=== PATIENT | female | born 1970 | race Caucasian/White ===

== ENCOUNTER 2017-09-03 14:59 | Emergency (ER) | payer BC ==
[2017-09-03 16:42] VITALS: BP 132/71
--- NOTE | 2017-09-03 17:23 | UC ---
Throat Pain/Nasal Bossman HPI - HPI Summary HPI Summary: 6 days of worsening sinus pain, congestion nasal drainage, body aches and chills - History of Current Complaint Chief Complaint: UCRespiratory Stated Complaint: SINUS COMP Time Seen by Provider: 09/03/17 16:44 Hx Obtained From: Patient Hx Last Menstrual Period: 09/02/17 ?: No Onset/Duration: Sudden Onset, Lasting Days - 6, Worse Since - daily Pain Intensity: 8 Pain Scale Used: 0-10 Numeric Associated Signs & Symptoms: Positive: Sinus Discomfort, Nasal Discharge Related History: Smoking - Allergies/Home Medications Allergies/Adverse Reactions: Allergies Allergy/AdvReac Type Severity Reaction Status Date / Time atenolol Allergy Difficulty Verified 09/03/17 16:33 Breathing Penicillins Allergy Difficulty Verified 09/03/17 16:33 Breathing Home Medications: Home Medications Acetaminophen [Acetaminophen Extra Strength] 1,000 mg PO Q6H 09/03/17 [History Confirmed 09/03/17] Cough Medication 10 ml PO BEDTIME PRN 09/03/17 [History] Ibuprofen TAB* [Advil TAB*] 800 mg PO Q6H PRN 09/03/17 [History Confirmed ] PMH/Surg Hx/FS Hx/Imm Hx Previously Healthy: No Endocrine History: Diabetes, Dyslipidemia Cardiovascular History: Hypertension Psychological History: Depression - Surgical History Surgical History: Yes Surgery Procedure, Year, and Place: T & A - Family History Known Family History: Positive: Hypertension, Diabetes - Social History Occupation: Employed Full-time Lives: With Family Alcohol Use: Occasionally Substance Use Type: None Smoking Status (MU): Heavy Every Day Tobacco Smoker Type: Cigarettes Amount Used/How Often: 1 ppd Length of Time of Smoking/Using Tobacco: 20 yrs Have You Smoked in the Last Year: Yes Review of Systems Constitutional: Chills, Fatigue Skin: Negative Eyes: Negative ENT: Ear Ache, Nasal Discharge, Sinus Congestion, Sinus Pain/Tenderness Respiratory: Cough Cardiovascular: Negative Gastrointestinal: Negative Genitourinary: Negative Motor: Negative Neurovascular: Negative Musculoskeletal: Negative Neurological: Negative Psychological: Negative Is Patient Immunocompromised?: No All Other Systems Reviewed And Are Negative: Yes Physical Exam Triage Information Reviewed: Yes Appearance: Ill-Appearing, Pain Distress, Obese Vital Signs: Initial Vital Signs Temp 98.5 F 09/03/17 16:36 Pulse 86 07/26/18 16:36 Resp 18 09/03/17 16:36 BP 132/71 09/03/17 16:36 Pulse Ox 99 09/03/17 16:36 Vital Signs Reviewed: Yes Eye Exam: Normal Eyes: Positive: Conjunctiva Clear ENT Exam: Normal ENT: Positive: Normal ENT inspection, Pharynx normal, Nasal congestion, TMs normal, Sinus tenderness, Uvula midline. Negative: Trismus, Muffled voice, Hoarse voice, Dental tenderness Dental Exam: Normal Neck exam: Normal Neck: Positive: Supple, Nontender Respiratory Exam: Normal Respiratory: Positive: Chest non-tender, Lungs clear, Normal breath sounds, No respiratory distress, No accessory muscle use Cardiovascular Exam: Normal Cardiovascular: Positive: RRR, No Murmur, Pulses Normal, Brisk Capillary Refill Musculoskeletal Exam: Normal Musculoskeletal: Positive: Strength Intact, ROM Intact, No Edema Neurological Exam: Normal Neurological: Positive: Alert, Muscle Tone Normal Psychological Exam: Normal Skin Exam: Normal Throat Pain/Nasal Course/Dx - Course Assessment/Plan: albuterol, flonase with no relief may start antibiodics, nicotine cesasation information, increase fluids follow with pcp - Differential Dx/Diagnosis Provider Diagnoses: Nicotine dependant, acute sinusitis Discharge - Sign-Out/Discharge Documenting (check all that apply): Patient Departure - Discharge Plan Condition: Stable Disposition: HOME Prescriptions: Albuterol HFA INHALER* [Ventolin HFA Inhaler*] 2 puff INH Q4H PRN #1 mdi PRN Reason: cough/sob Azithromycin TAB* [Zithromax TAB (Z-FLEX) 250 mg #6 tabs] 2 tab PO .TODAY, THEN 1 DAILY #1 flex Fluticasone NASAL SPRAY 50MCG* [Flonase NASAL SPRAY 50MCG*] 2 spray BOTH NARES DAILY #1 btl Patient Education Materials: Sinusitis (ED) Forms: *Work Release Referrals: Milagros Bhatia NP [Primary Care Provider] - If Needed - Billing Disposition and Condition Condition: STABLE Disposition: Home
== END 2017-09-03 17:33 | disposition home or self-care (01) ==
LOC: UCCORT 14:59
DX: J01.90 Acute sinusitis, unspecified (principal); Z88.0 Allergy status to penicillin; Z88.8 Allergy status to other drugs, medicaments and biological substances; F17.210 Nicotine dependence, cigarettes, uncomplicated
CPT/HCPCS: 99212; G0463

== ENCOUNTER 2018-11-15 15:37 | Emergency (ER) | payer BC ==
--- OUTSIDE RECORDS SUMMARY | 2018-11-15 17:59 | XMS REPORT | Continuity of Care Document ---
:1970 External Reference #:[id number] Author Name Milagros Bhatia N.[place]ato Address [address] [place] [address] Problems Active Problems Provider Date Essential hypertension Milagros Bhatia, N.P. Onset: 05/09/2016 Moderate recurrent major depression Milagros Bhatia, N.P. Onset: 05/09/2016 Polycystic ovaries Milagros Bhatia, N.P. Onset: 05/09/2016 Overweight Milagros Bhatia, N.P. Onset: 05/09/2016 Mixed hyperlipidemia Milagros Bhatia, N.P. Onset: 05/09/2016 Mood disorder Milagros Bhatia, N.P. Onset: 02/23/2017 Social History Type Date Description Comments Sex Unknown Tobacco Use Start: Unknown Light tobacco smoker (10 or fewer cigarettes/day) Allergies, Adverse Reactions, Alerts Active Allergies Reaction Severity Comments Date PCN Tenormin Medications Active Medications SIG Qnty Indications Ordering Date Provider Work Note No work Sriram, 10/25/2018 10/25/18-10/26/18 Milagros, N.P. for medical reasons Zithromax Z-Colt as directed 1tabs Sriram, 10/13/2018 250mg Tablets Mashelle, N.P. Cyclobenzaprine HCL take one tablet 15tabs Sriram, 06/22/2018 10mg Tablets by mouth three Mashelle, N.P. times a day as needed muscle spasm Prednisone 1 by mouth 3tabs Sriram, 06/22/2018 50mg Tablets every day x 3 Mashelle, N.P. days Januvia Take One Tablet 30tabs Sriram, 06/15/2018 50mg Tablets By Mouth Every Mashelle, N.P. Morning Propranolol HCL ER Take One 30caps Sriram, 06/11/2018 160mg Caps ER Capsule By Mashelle, N.P. 24HR Mouth Every Day Fluoxetine HCL Take One caps Sriram, 08/19/2012 40mg Capsules Capsule By Mashelle, N.P. Mouth Every Day Simvastatin Take One Tablet 90tabs Sriram, 12/22/2011 20mg Tablets By Mouth Every Mashelle, N.P. Day Metformin HCL Take One Tablet 180tabs Sriram, 11/13/2008 500mg Tablets By Mouth Twice Mashelle, N.P. A Day Hydrochlorothiazide Take One Tablet 90tabs Sriram, 05/22/2004 25mg Tablets By Mouth Every Mashelle, N.P. Day History Medications Propranolol HCL ER 1 by mouth 90caps Sriram, Mashelle, 06/11/2018 - 120mg every day N.P. 06/11/2018 Caps ER 24HR Medications Administered in Office Medication SIG Qnty Indications Ordering Provider Date Depo Medrol 40 MG Criselda Miner MD 02/20/2003 Injection Immunizations CPT Code Status Date Vaccine Lot # [id number] Given 11/17/2017 Influenza Vac, Quadrivalent, Split, 0.5mL Dosage, Im Use [id number] Given 11/23/2016 Influenza Vac, Quadrivalent, Split, 0.5mL Dosage, Im Use [id number] Given 12/05/2015 Influenza Vac, Quadrivalent, Split, 0.5mL Dosage, Im Use 37052 Given 11/24/2013 Afluria Or Fluvirin Flu Vac Intramuscular [id number] Given 11/17/2012 Fluzone Trivalent Immunization 77919 Given 10/04/2008 Tdap (Adacel) Ages 7 And Above Only [id number] Given 05/03/1985 DTaP Immunization 7 Yrs & Younger [id number] 65046 Given 12/22/1974 MMR Virus Immunization 23909 Given 05/29/1973 IPV / Poliomyelitis Immunization 50937 Given 05/11/1973 DTaP Immunization 7 Yrs & Younger [id number] 37021 Given 05/16/1970 Small Pox Immunization 21720 Given 02/28/1970 IPV / Poliomyelitis Immunization 46348 Given 02/28/1970 DTaP Immunization 7 Yrs & Younger [id number] 88797 Given 06/27/1969 MMR Virus Immunization 27491 Given 1968 IPV / Poliomyelitis Immunization 24899 Given 1968 DTaP Immunization 7 Yrs & Younger [id number] 04752 Given 1968 IPV / Poliomyelitis Immunization 58006 Given 1968 DTaP Immunization 7 Yrs & Younger [id number] 90843 Given 1968 IPV / Poliomyelitis Immunization 01749 Given 1968 DTaP Immunization 7 Yrs & Younger [id number] Vital Signs Date Vital Result Comment 10/25/2018 9:45am Body Temperature 97.3 F Weight 285.00 lb Heart Rate 60 /min BP Systolic 126 mmHg BP Diastolic 78 mmHg O2 % BldC Oximetry 97 % 10/13/2018 10:55am Body Temperature 97.7 F Weight 294.00 lb Heart Rate 68 /min BP Systolic 134 mmHg BP Diastolic 74 mmHg O2 % BldC Oximetry 97 % Results Test Date Facility Test Result H/L Range Note Hemoglobin A1c 10/13/2018 [facility] Hemoglobin A1c 5.8 % 4.1-5.9 1 Estimated Average Glucose Calc 120 mg/dL 71-140 Basic (BMP) 10/13/2018 [facility] Sodium 147 mmol/L High 135-146 2 Potassium 4.8 mmol/L 3.5-5.2 Chloride# 102 mmol/L 97-110 3 Carbon Dioxide 32 mmol/L 24-34 Glucose 103 mg/dL 70-105 BUN 14 mg/dL 6-26 Creatinine 0.7 mg/dL 0.5-1.4 Calcium 10.2 mg/dL 8.5-10.5 4 Female Egfr 94 >60 5 Male Egfr 107 >60 6 Anion Gap 13 mmol/L 5-15 7 Lipid 10/13/2018 [facility] Cholesterol 185 mg/dL 50-199 Triglycerides 415 mg/dL High 30-200 HDL 33 mg/dL Low 35-85 8 Chol/ HDL Ratio 5.6 ratio 3.7-5.6 Laboratory test finding 10/13/2018 [facility] LDL 99 mg/dL 20-99 9 Comprehensive Met 06/11/2018 [facility] Sodium 140 mmol/L 135-146 10, 11 [facility] Potassium 4.6 mmol/L 3.5-5.2 Chloride# 102 mmol/L 97-110 12 Carbon Dioxide 28 mmol/L 24-34 Calcium (Copy 9377) 9.7 mg/dL 8.5-10.5 13 Glucose 100 mg/dL 70-105 BUN 14 mg/dL 6-26 Creatinine 0.6 mg/dL 0.5-1.4 Total Protein 6.9 g/dL 6.0-8.0 Albumin 4.3 g/dL 3.6-4.9 Globulin 2.6 g/dL 2.0-3.5 A/G Ratio 1.7 Ratio 1.0-2.2 Total Bilirubin 0.3 mg/dL 0.1-1.3 Alkaline Phosphatase 73 U/L 24-140 Alt 26 U/L 3-42 Ast 17 U/L 8-42 Anion Gap 10 mmol/L 5-15 14 Female Egfr 104 >60 15 Male Egfr 114 >60 16 Lipid 06/11/2018 [facility] Cholesterol 223 mg/dL High 50-199 Triglycerides 347 mg/dL High 30-200 HDL 32 mg/dL Low 35-85 17 Chol/ HDL Ratio 7.0 ratio High 3.7-5.6 VLDL 69 mg/dL High 2-29 LDL (Calc) 122 mg/dL High 20-99 18 Hemoglobin A1c 06/11/2018 [facility] Hemoglobin A1c 6.1 % High 4.1-5.9 Estimated Average Glucose Calc 128 mg/dL 71-140 1 This sample is drawn by:DL/UNIT EDUCATOR 2 Updated reference range on new analyzer 3 Updated reference range on new analyzer 4 Updated reference range 06-09-2018 5 Concerning GFR Guidelines for Americans: Normal function or mild renal disease, if clinically at risk: >/= 60 mL/min Moderately decreased: 30-59 Severely decreased: 15-29 Renal failure: <15 There is reduced accuracy above 60ml/min/1.73 m squared, but the numeric value may be clinically useful in the near 60 range 6 Concerning GFR Guidelines: Normal function or mild renal disease, if clinically at risk: >/= 60 mL/min Moderately decreased: 30-59 Severely decreased: 15-29 Renal failure: <15 There is reduced accuracy above 60ml/min/1.73 m squared, but the numeric value may be clinically useful in the near 60 range Glomerular Filtration Rate (GFR) is estimated based on the CKD-EPI equation, which assumes a steady state for creatinine as recommended by the National Kidney Disease Education Program in conjunction with the National Institutes of Health and the National Kidney Foundation. Clinical conditions in which it may be necessary to measure GFR by using clearance methods include extremes of age and body size, severe malnutrition or obesity, diseases of skeletal muscle, paraplegia or quadriplegia, vegetarian diet, rapidly changing kidney function, and calculation of the dose of potentially toxic drugs that are excreted by the kidneys. 7 Updated Reference Range 8 Per NCEP ATP III Guidelines: Results lower than 40 mg/dL are suggestive of increased risk for coronary artery disease. Results > or = to 60 mg/dL are considered a negative risk factor. 9 Per NCEP ATP III Guidelines: Normal population: <130 Patients with medical conditions: CHD/DM Optimal range: <100 Borderline high: 130-159 High: 160-189 Very high: >189 10 This sample is drawn by:jian 11 Updated reference range on new analyzer 12 Updated reference range on new analyzer 13 Updated reference range 06-09-2018 14 Updated Reference Range 15 Concerning GFR Guidelines for Americans: Normal function or mild renal disease, if clinically at risk: >/= 60 mL/min Moderately decreased: 30-59 Severely decreased: 15-29 Renal failure: <15 There is reduced accuracy above 60ml/min/1.73 m squared, but the numeric value may be clinically useful in the near 60 range 16 Concerning GFR Guidelines: Normal function or mild renal disease, if clinically at risk: >/= 60 mL/min Moderately decreased: 30-59 Severely decreased: 15-29 Renal failure: <15 There is reduced accuracy above 60ml/min/1.73 m squared, but the numeric value may be clinically useful in the near 60 range Glomerular Filtration Rate (GFR) is estimated based on the CKD-EPI equation, which assumes a steady state for creatinine as recommended by the National Kidney Disease Education Program in conjunction with the National Institutes of Health and the National Kidney Foundation. Clinical conditions in which it may be necessary to measure GFR by using clearance methods include extremes of age and body size, severe malnutrition or obesity, diseases of skeletal muscle, paraplegia or quadriplegia, vegetarian diet, rapidly changing kidney function, and calculation of the dose of potentially toxic drugs that are excreted by the kidneys. 17 Per NCEP ATP III Guidelines: Results lower than 40 mg/dL are suggestive of increased risk for coronary artery disease. Results > or = to 60 mg/dL are considered a negative risk factor. 18 Per NCEP ATP III Guidelines: Normal Population <130 Patients with medical conditions: CHD/DM Optimal: <100 Borderline high: 130-159 High: 160-189 Very high: >189 Procedures Date Code Description Status 10/25/2015 12986800 Colonoscopy Completed 09/21/2015 [id number] Mammogram Completed 10/03/2014 [id number] Mammogram Completed 12/29/2011 [id number] Mammogram Completed 02/25/2010 [id number] Mammogram Completed 11/06/2008 [id number] Mammogram Completed Medical Devices Description No Information Available Encounters Type Date Location Provider Dx Diagnosis Office Visit 10/13/2018 Milagros Juarez J06.9 Acute upper 11:00a N.P. respiratory infection, unspecified E11.9 Type 2 diabetes mellitus without complications E78.2 Mixed hyperlipidemia I10 Essential (primary) hypertension Office Visit 06/22/2018 10:45a Milagros Juarez, N.P. M54.5 Low back pain E66.01 Morbid (severe) obesity due to excess calories Z68.42 Body mass index (BMI) 45.0-49.9, adult Office Visit 06/11/2018 9:15a Milagros Juarez, E78.2 Mixed hyperlipidemia N.P. I10 Essential (primary) hypertension R79.9 Abnormal finding of blood chemistry, unspecified E66.01 Morbid (severe) obesity due to excess calories Z13.31 Encounter for screening for depression Z68.42 Body mass index (BMI) 45.0-49.9, adult Assessments Date Code Description Provider 10/25/2018 M54.5 Low back pain Milagros Bhatia, N.P. 10/13/2018 J06.9 Acute upper respiratory infection, Milagros Bhatia, N.P. unspecified 10/13/2018 E11.9 Type 2 diabetes mellitus without Milagros Bhatia, N.P. complications 10/13/2018 E78.2 Mixed hyperlipidemia Milagros Bhatia, N.P. 10/13/2018 I10 Essential (primary) hypertension Milagros Bhatia, N.P. 10/13/2018 E11.9 Type 2 diabetes mellitus without [facility] complications 10/13/2018 I10 Essential (primary) hypertension [facility] [place] [facility] 10/13/2018 E78.2 Mixed hyperlipidemia [facility] [place] [facility] 06/22/2018 M54.5 Low back pain Milagros Bhatia, N.P. 06/22/2018 E66.01 Morbid (severe) obesity due to excess Milagros Bhatia, N.P. calories 06/22/2018 Z68.42 Body mass index (BMI) 45.0-49.9, adult Milagros Bhatia, N.P. 06/11/2018 E78.2 Mixed hyperlipidemia Milagros Bhatia, N.P. 06/11/2018 I10 Essential (primary) hypertension Milagros Bhatia, N.P. 06/11/2018 R79.9 Abnormal finding of blood chemistry, Milagros Bhatia, N.P. unspecified 06/11/2018 E66.01 Morbid (severe) obesity due to excess Milagros Bhatia, N.P. calories 06/11/2018 Z13.31 Encounter for screening for depression Milagros Bhatia, N.P. 06/11/2018 Z68.42 Body mass index (BMI) 45.0-49.9, adult Milagros Bhatia, N.P. 06/11/2018 E78.2 Mixed hyperlipidemia [facility] [place] [facility] 06/11/2018 I10 Essential (primary) hypertension [facility] [place] [facility] 06/11/2018 R79.9 Abnormal finding of blood chemistry, [facility] unspecified Plan of Treatment 10/25/2018 - Milagros Bhatia, N.P.M54.5 Low back painComments:meds as rx'd, warm moist heat, no excessive lifting or bending, report non-resolution 5-7 daysAllNew Medication:Work Note - No work 10/25/18-10/26/18 for medical reasons Functional Status Description No Information Available Mental Status Description No Information Available Referrals Description No Information Available
--- OUTSIDE RECORDS SUMMARY | 2018-11-15 17:59 | XMS REPORT | Continuity of Care Document ---
:1970 External Reference #:[id number] Author Name Milagros Bhatia N.P. Address [address] [place] [address] Problems Active Problems Provider Date Essential hypertension Milagros Bhatia, N.P. Onset: 05/09/2016 Moderate recurrent major depression Milagros Bhatia, N.P. Onset: 05/09/2016 Polycystic ovaries Milagros Bhatia, N.P. Onset: 05/09/2016 Overweight Milagros Bhatia, N.P. Onset: 05/09/2016 Mixed hyperlipidemia Milagros Bhatia, N.P. Onset: 05/09/2016 Mood disorder Milagros Bhtaia, N.P. Onset: 02/23/2017 Social History Type Date Description Comments Sex Unknown Tobacco Use Start: Unknown Light tobacco smoker (10 or fewer cigarettes/day) Allergies, Adverse Reactions, Alerts Active Allergies Reaction Severity Comments Date PCN Tenormin Medications Active Medications SIG Qnty Indications Ordering Date Provider Zithromax Z-Colt as directed 1tabs Sriram, 10/13/2018 250mg Tablets Mashelle, N.P. Cyclobenzaprine HCL take one tablet 15tabs Sriram, 06/22/2018 10mg Tablets by mouth three Mashelle, N.P. times a day as needed muscle spasm Prednisone 1 by mouth 3tabs [place], 06/22/2018 50mg Tablets every day x 3 Mashelle, N.P. days Januvia Take One Tablet 30tabs Sriram, 06/15/2018 50mg Tablets By Mouth Every Mashelle, N.P. Morning Propranolol HCL ER Take One 30caps Sriram, 06/11/2018 160mg Caps ER Capsule By Mashelle, N.P. 24HR Mouth Every Day Fluoxetine HCL Take One 90caps Sriram, 08/19/2012 40mg Capsules Capsule By Mashelle, [...] Propranolol HCL ER 1 by mouth 90caps Milagros Bhatia, 06/11/2018 - 120mg every day N.P. 06/11/2018 Caps ER 24HR Medications Administered in Office Medication SIG Qnty Indications Ordering Provider Date Depo Medrol 40 MG Criselda Miner MD 02/20/2003 Injection Immunizations CPT Code Status Date Vaccine Lot # [id number] Given 11/17/2017 Influenza Vac, Quadrivalent, Split, 0.5mL Dosage, Im Use 82560 Given 11/23/2016 Influenza Vac, Quadrivalent, Split, 0.5mL Dosage, Im Use 72441 Given 12/05/2015 Influenza Vac, Quadrivalent, Split, 0.5mL Dosage, Im Use 21794 Given 11/24/2013 Afluria Or Fluvirin Flu Vac Intramuscular Q2038 Given 11/17/2012 Fluzone Trivalent Immunization 72100 Given 10/04/2008 Tdap (Adacel) Ages 7 And Above Only [id number] 22183 Given 05/03/1985 DTaP Immunization 7 Yrs & Younger [id number] 48914 Given 12/22/1974 MMR Virus Immunization 47931 Given 05/29/1973 IPV / Poliomyelitis Immunization 01175 Given 05/11/1973 DTaP Immunization 7 Yrs & Younger [id number] 71316 Given 05/16/1970 Small Pox Immunization 10470 Given 02/28/1970 IPV / Poliomyelitis Immunization 18835 Given 02/28/1970 DTaP Immunization 7 Yrs & Younger [id number] 29731 Given 06/27/1969 MMR Virus Immunization 45199 Given 1968 IPV / Poliomyelitis Immunization 37238 Given 1968 DTaP Immunization 7 Yrs & Younger [id number] 63217 Given 1968 IPV / Poliomyelitis Immunization 02537 Given 1968 DTaP Immunization 7 Yrs & Younger [id number] 20660 Given 1968 IPV / Poliomyelitis Immunization 14915 Given 1968 DTaP Immunization 7 Yrs & Younger [id number] Vital Signs Date Vital Result Comment 10/13/2018 10:55am Body Temperature 97.7 F Weight 294.00 lb Heart Rate 68 /min BP Systolic 134 mmHg BP Diastolic 74 mmHg O2 % BldC Oximetry 97 % 06/22/2018 10:45am Body Temperature 97.3 F Weight 307.12 lb Heart Rate 75 /min BP Systolic 136 mmHg BP Diastolic 76 mmHg Height 66 inches 5'6" O2 % BldC Oximetry 97 % BMI (Body Mass Index) 49.6 kg/m2 Results Test Date Facility Test Result H/L Range Note Laboratory test 10/13/2018 [facility] Hemoglobin A1c <pending> finding Comprehensive Met 06/11/2018 [facility] Sodium 140 mmol/L 135-146 1, 2 [facility] Potassium 4.6 mmol/L 3.5-5.2 Chloride# 102 mmol/L 97-110 3 Carbon Dioxide 28 mmol/L 24-34 Calcium (Copy 2742) 9.7 mg/dL 8.5-10.5 4 Glucose 100 mg/dL 70-105 BUN 14 mg/dL 6-26 Creatinine 0.6 mg/dL 0.5-1.4 Total Protein 6.9 g/dL 6.0-8.0 Albumin 4.3 g/dL 3.6-4.9 Globulin 2.6 g/dL 2.0-3.5 A/G Ratio 1.7 Ratio 1.0-2.2 Total Bilirubin 0.3 mg/dL 0.1-1.3 Alkaline Phosphatase 73 U/L 24-140 Alt 26 U/L 3-42 Ast 17 U/L 8-42 Anion Gap 10 mmol/L 5-15 5 Female Egfr 104 >60 6 Male Egfr 114 >60 7 Lipid 06/11/2018 [facility] Cholesterol 223 mg/dL High 50-199 Triglycerides 347 mg/dL High 30-200 HDL 32 mg/dL Low 35-85 8 Chol/ HDL Ratio 7.0 ratio High 3.7-5.6 VLDL 69 mg/dL High 2-29 LDL (Calc) 122 mg/dL High 20-99 9 Hemoglobin A1c 06/11/2018 [facility] Hemoglobin A1c 6.1 % High 4.1-5.9 Estimated Average Glucose Calc 128 mg/dL 71-140 1 This sample is drawn by:dl/supervisory clerk 2 Updated reference range on new analyzer 3 Updated reference range on new analyzer 4 Updated reference range 06-09-2018 5 Updated Reference Range 6 Concerning GFR Guidelines for Americans: Normal function or mild renal disease, if clinically at risk: >/= 60 mL/min Moderately decreased: 30-59 Severely decreased: 15-29 Renal failure: <15 There is reduced accuracy above 60ml/min/1.73 m squared, but the numeric value may be clinically useful in the near 60 range 7 Concerning GFR Guidelines: Normal function or mild [...] drugs that are excreted by the kidneys. 8 Per NCEP ATP III Guidelines: Results lower than 40 mg/dL are suggestive of increased risk for coronary artery disease. Results > or = to 60 mg/dL are considered a negative risk factor. 9 Per NCEP ATP III Guidelines: Normal Population <130 Patients with medical conditions: CHD/DM Optimal: <100 Borderline high: 130-159 High: 160-189 Very high: >189 Procedures Date Code Description Status 10/25/2015 [id number] Colonoscopy Completed 09/21/2015 [id number] Mammogram Completed 10/03/2014 [id number] Mammogram Completed 12/29/2011 [id number] Mammogram Completed 02/25/2010 [id number] Mammogram Completed 11/06/2008 [id number] Mammogram Completed Medical Devices Description No Information Available Encounters Type Date Location Provider Dx Diagnosis Office Visit 06/22/2018 10:45a Milagros Juarez, N.P. [...] 45.0-49.9, adult Assessments Date Code Description Provider 10/13/2018 J06.9 Acute upper respiratory infection, iMlagros Bhatia, N.P. unspecified 10/13/2018 E11.9 Type 2 diabetes mellitus without Milagros Bhatia, N.P. complications 10/13/2018 E78.2 Mixed hyperlipidemia Justin Bhatiale, N.P. 10/13/2018 I10 Essential (primary) hypertension Milagros Bhatia, N.P. 06/22/2018 M54.5 Low back pain Justin Bhatiale, N.P. 06/22/2018 E66.01 Morbid (severe) obesity due to excess Milagros Bhatia, N.P. calories 06/22/2018 Z68.42 Body mass index (BMI) 45.0-49.9, adult Justin Bhatiale, N.P. 06/11/2018 E78.2 Mixed hyperlipidemia Sriram, Justinle, N.P. 06/11/2018 I10 Essential (primary) hypertension Justin Bhatiale, N.P. 06/11/2018 R79.9 Abnormal finding of blood chemistry, Milagros Bhatia, N.P. unspecified 06/11/2018 E66.01 Morbid (severe) obesity due to excess Justin Bhatiale, N.P. calories 06/11/2018 Z13.31 Encounter for screening for depression Milagros Bhatia, N.P. 06/11/2018 Z68.42 Body mass index (BMI) 45.0-49.9, adult Milagros Bhatia N.P. 06/11/2018 E78.2 Mixed hyperlipidemia [facility] 06/11/2018 I10 Essential (primary) hypertension [facility] 06/11/2018 R79.9 Abnormal finding of blood chemistry, [facility] unspecified Plan of Treatment 10/13/2018 - Milagros Bhatia N.P.J06.9 Acute upper respiratory infection, unspecifiedComments:rest, fluids, tylenol prn start z-colt only if you develop a fever or symps ewiwuqV70.9 Type 2 diabetes mellitus without complicationsComments:f/u HgA1C resultscont diet changes and weight losscont medsE78.2 Mixed hyperlipidemiaComments:importance of low chol/fat diet discussedwritten pt ed given concerning sources of chol and diet premlhepS16 Essential (primary) hypertensionComments: stable with current meds. Cont same pt inst to monitor B/P at home/work 2-3 times per week and report abngoal: < 140/90AllNew Medication:Zithromax Z-Colt 250 mg - as directed Functional Status Description No Information Available Mental Status Description No Information Available Referrals Description No Information Available
--- OUTSIDE RECORDS SUMMARY | 2018-11-15 17:59 | XMS REPORT | Continuity of Care Document ---
:1970 External Reference #:[id number] Author Name Milagros Bhatia N.PRenato Address [address] [place] [address] Problems Active Problems Provider Date Essential hypertension [...] Medications SIG Qnty Indications Ordering Date Provider Carisoprodol 1 by mouth 30tabs Sriram, 11/02/2018 350mg Tablets four times a Milagros, N.P. day as needed muscle spasm Jury Duty Medical Note Please excuse Sriram, 11/01/2018 patient from Milagros, N.P. jury duty for acute back injury. She is unable to sit for long periods of time. Work Note no work Sriram, 10/25/2018 11/02/18- Milagros, N.P. 9 for medical reasons Januvia Take One 30tabs Sriram, 06/15/2018 50mg Tablets Tablet By Mialgros, N.P. Mouth Every Morning Propranolol HCL ER Take One 30caps Sriram, 06/11/2018 160mg Caps ER Capsule By Milagros, N.P. 24HR Mouth Every Day Fluoxetine HCL Take One 90caps Srirma, 08/19/2012 40mg Capsules Capsule By Milagros, N.P. Mouth Every Day Simvastatin Take One 90tabs [place], 12/22/2011 20mg Tablets Tablet By Milagros, N.P. Mouth Every Day Metformin HCL Take One 180tabs [place], 11/13/2008 500mg Tablets Tablet By Milagros, N.P. Mouth Twice A Day Hydrochlorothiazide Take One 90tabs Sriram, 05/22/2004 25mg Tablets Tablet By Milagros, N.P. Mouth Every Day History Medications Zithromax Z-Colt as directed 1tabs Milagros Bhatia, 10/13/2018 - 250mg Tablets N.P. 11/02/2018 Cyclobenzaprine HCL take one tablet 15tabs Milagros Bhatia, 06/22/2018 - 10mg by mouth three N.P. 11/02/2018 Tablets times a day as needed muscle spasm Prednisone 1 by mouth every 3tabs Milagros Bhatia, 06/22/2018 - 50mg Tablets day x 3 days N.P. 11/02/2018 Propranolol HCL ER 1 by mouth every 90caps Milagros Bhatia, 06/11/2018 - 120mg Caps day N.P. 06/11/2018 ER 24HR Medications Administered in Office Medication SIG Qnty Indications Ordering Provider Date Depo Medrol 40 MG Criselda Miner MD 02/20/2003 Injection Immunizations CPT Code Status Date Vaccine Lot # [id number] Given 11/17/2017 Influenza Vac, Quadrivalent, Split, 0.5mL Dosage, Im Use 21288 Given 11/23/2016 Influenza Vac, Quadrivalent, Split, 0.5mL Dosage, Im Use 09454 Given 12/05/2015 Influenza Vac, Quadrivalent, Split, 0.5mL Dosage, Im Use 39648 Given 11/24/2013 Afluria Or Fluvirin Flu Vac Intramuscular Q2038 Given 11/17/2012 Fluzone Trivalent Immunization 73019 Given 10/04/2008 Tdap (Adacel) Ages 7 And Above Only [id number] 29192 Given 05/03/1985 DTaP Immunization 6 Yrs & Younger [id number] 05644 Given 12/22/1974 MMR Virus Immunization 73372 Given 05/29/1973 IPV / Poliomyelitis Immunization 22797 Given 05/11/1973 DTaP Immunization 6 Yrs & Younger [id number] 32227 Given 05/16/1970 Small Pox Immunization 36189 Given 02/28/1970 IPV / Poliomyelitis Immunization 55013 Given 02/28/1970 DTaP Immunization 6 Yrs & Younger [id number] 89211 Given 06/27/1969 MMR Virus Immunization 55530 Given 1968 IPV / Poliomyelitis Immunization 91604 Given 1968 DTaP Immunization 6 Yrs & Younger [id number] 77074 Given 1968 IPV / Poliomyelitis Immunization 54353 Given 1968 DTaP Immunization 6 Yrs & Younger [id number] 70470 Given 1968 IPV / Poliomyelitis Immunization 77293 Given 1968 DTaP Immunization 6 Yrs & Younger [id number] Vital Signs Date Vital Result Comment 11/02/2018 10:35am Body Temperature 97.5 F Weight 286.00 lb Heart Rate 65 /min BP Systolic 128 mmHg BP Diastolic 78 mmHg O2 % BldC Oximetry 96 % 10/25/2018 9:45am Body Temperature 97.3 F Weight [...] Carbon Dioxide 28 mmol/L 24-34 Calcium (Copy 2747) 9.7 mg/dL 8.5-10.5 13 Glucose 100 mg/dL [...] Male Egfr 114 >60 16 Lipid 06/11/2018 [facility] Cholesterol 223 mg/dL High 50-199 Triglycerides 347 mg/dL High 30-200 HDL 32 mg/dL Low 35-85 17 Chol/ HDL Ratio 7.0 ratio High 3.7-5.6 VLDL 69 mg/dL High 2-29 LDL (Calc) 122 mg/dL High 20-99 18 Hemoglobin A1c 06/11/2018 [facility] Hemoglobin A1c 6.1 % High 4.1-5.9 Estimated Average Glucose Calc 128 mg/dL 71-140 1 This sample is drawn by:DL/PROTECTIVE SIGNAL REPAIRER 2 Updated reference range on new analyzer [...] high: >189 10 This sample is drawn by:abena/neighborhood conservation officer 11 Updated reference range on new analyzer [...] >189 Procedures Date Code Description Status 10/25/2015 [id number] Colonoscopy Completed 09/21/2015 [id number] Mammogram Completed 10/03/2014 [id number] Mammogram Completed 12/29/2011 [id number] Mammogram Completed 02/25/2010 [id number] Mammogram Completed 11/06/2008 [id number] Mammogram Completed Medical Devices Description No Information Available Encounters Type Date Location Provider Dx Diagnosis Office Visit 10/25/2018 Milagros Juarez, M54.5 Low back pain 9:45a N.P. Office Visit 10/13/2018 Milagros Juarez, J06.9 Acute upper 11:00a N.P. respiratory infection, [...] 45.0-49.9, adult Assessments Date Code Description Provider 11/02/2018 M54.5 Low back pain Milagros Bhatia, N.P. 10/25/2018 M54.5 Low back pain Milagros Bhatia, N.P. 10/13/2018 J06.9 Acute upper respiratory infection, Milagros Bhatia, N.P. unspecified 10/13/2018 E11.9 Type 2 diabetes mellitus without Justin Bhatiale, N.P. complications 10/13/2018 E78.2 Mixed hyperlipidemia Justin Bhatiale, N.P. 10/13/2018 I10 Essential (primary) hypertension Justin Bhatiale, N.P. 10/13/2018 E11.9 Type 2 diabetes mellitus without [facility] complications 10/13/2018 I10 Essential (primary) hypertension [facility] 10/13/2018 E78.2 Mixed hyperlipidemia [facility] 06/22/2018 M54.5 Low back pain [...] Milagros Bhatia, N.P. 06/11/2018 E78.2 Mixed hyperlipidemia [facility] 06/11/2018 I10 Essential (primary) hypertension [facility] 06/11/2018 R79.9 Abnormal finding of blood chemistry, [facility] unspecified Plan of Treatment 11/02/2018 - Milagros Bhatia, N.P.M54.5 Low back painComments:stop flexeril and use SOMA as directed. cont warm moist heat, no excessive lifting or bending , report non-resolution 5-7 days consider PTAllNew Medication:Carisoprodol 350 mg - 1 by mouth four times a day as needed muscle spasm Functional Status Description No Information Available Mental Status Description No Information Available Referrals Description No Information Available
[2018-11-15 18:12] VITALS: BP 124/68
--- NOTE | 2018-11-15 19:12 | UC ---
Throat Pain/Nasal Bossman HPI - HPI Summary HPI Summary: 48-year-old female comes in with a chief complaint of sore throat for 2 days. Hurts when she swallows.'s been drinking ice water which decreases the pain. When she looks at the back of her throat her uvula is swollen on the left side. She feels like the left side of her neck is swollen. No difficulty breathing. Does have some pain radiates to the ear. - History of Current Complaint Chief Complaint: UCGeneralIllness Stated Complaint: ORAL COMPLAINT Time Seen by Provider: 11/15/18 18:25 Hx Last Menstrual Period: 10/10/18 Pain Intensity: 5 - Allergies/Home Medications Allergies/Adverse Reactions: Allergies Allergy/AdvReac Type Severity Reaction Status Date / Time atenolol Allergy Difficulty Verified 11/15/18 18:12 Breathing Penicillins Allergy Difficulty Verified 11/15/18 18:12 Breathing Home Medications: Home Medications Sitagliptin Phosphate [Januvia] 25 mg PO DAILY 11/15/18 [History Confirmed 11/15] PMH/Surg Hx/FS Hx/Imm Hx Previously Healthy: Yes Endocrine History: Diabetes Cardiovascular History: Hypertension - Surgical History Surgical History: Yes Surgery Procedure, Year, and Place: T & A - Family History Known Family History: Positive: Hypertension, Diabetes - Social History Alcohol Use: Occasionally Substance Use Type: None Smoking Status (MU): Heavy Every Day Tobacco Smoker Type: Cigarettes Amount Used/How Often: 1 ppd Length of Time of Smoking/Using Tobacco: 20 yrs Have You Smoked in the Last Year: Yes Review of Systems All Other Systems Reviewed And Are Negative: Yes Constitutional: Positive: Negative Skin: Positive: Negative Eyes: Positive: Negative ENT: Positive: Sore Throat, Ear Ache Respiratory: Positive: Negative Cardiovascular: Positive: Negative Gastrointestinal: Positive: Negative Motor: Positive: Negative Neurovascular: Positive: Negative Musculoskeletal: Positive: Negative Neurological: Positive: Negative Psychological: Positive: Negative Is Patient Immunocompromised?: No Physical Exam Triage Information Reviewed: Yes Appearance: Well-Appearing, No Pain Distress, Well-Nourished Vital Signs: Initial Vital Signs Temp 97.0 F 11/15/18 18:05 Pulse 66 11/15/18 18:05 Resp 16 11/15/18 18:05 BP 124/68 11/15/18 18:05 Pulse Ox 100 11/15/18 18:05 Vital Signs Reviewed: Yes Eye Exam: Normal Eyes: Positive: Conjunctiva Clear ENT: Positive: TMs normal, Other - The uvula is erythematous and slightly swollen primarily on the left side and there is no light colored discoloration. No peritonsillar abscess on exam at this time. Oral pharynx is open.. Negative: Muffled voice, Hoarse voice Neck: Positive: Supple, Other: - There is some fullness in the left side of the neck that's mildly tender to palpation. Respiratory: Positive: Lungs clear, Normal breath sounds, No respiratory distress. Negative: Stridor Cardiovascular: Positive: RRR Musculoskeletal: Positive: Strength Intact, ROM Intact Neurological: Positive: Alert Psychological: Positive: Age Appropriate Behavior Skin Exam: Normal Throat Pain/Nasal Course/Dx - Course Course Of Treatment: DISCUSSED VIRAL VERSES BACTERIAL INFECTIONS AND THE ROLE OF ANTIBIOTICS. THE PATIENT PREFERS TO BE ON ANTIBIOTICS AT THIS TIME At this time the oropharynx is open we did discuss that if the patient had any further difficulty swallowing or breathing she needs to the emergency department right away. - Differential Dx/Diagnosis Provider Diagnosis: Pharyngitis Discharge ED - Sign-Out/Discharge Documenting (check all that apply): Patient Departure All imaging exams completed and their final reports reviewed: No Studies - Discharge Plan Condition: Stable Disposition: HOME Prescriptions: Cephalexin CAP* [Keflex CAP*] 500 mg PO TID #30 cap Magic Mouth Was-BILL/MAAL/LIDO* 5 ml SWISH SWAL QID PRN #120 ml PRN Reason: Pain - Moderate Patient Education Materials: Pharyngitis (ED) Referrals: Milagros Bhatia NP [Primary Care Provider] - Additional Instructions: FOLLOW UP WITH YOUR DOCTOR IF NOT COMPLETELY IMPROVED. GET REEVALUATED SOONER IF NOT IMPROVING OR GO TO THE EMERGENCY DEPARTMENT IF YOUR CONDITION WORSENS; DIFFICULTY BREATHING OR SWALLOWING OR ANY QUESTIONS OR CONCERNS - Billing Disposition and Condition Condition: STABLE Disposition: Home
== END 2018-11-15 19:20 | disposition home or self-care (01) ==
LOC: UCCORT 15:37
DX: J02.9 Acute pharyngitis, unspecified (principal); E11.9 Type 2 diabetes mellitus without complications; I10 Essential (primary) hypertension; F17.210 Nicotine dependence, cigarettes, uncomplicated; Z88.8 Allergy status to other drugs, medicaments and biological substances; Z88.0 Allergy status to penicillin
CPT/HCPCS: 99212; G0463